=== PATIENT | male | born 1960 | race Caucasian/White ===

== ENCOUNTER 2017-10-30 13:57 | Inpatient (IN) | payer OTHER ==
[~2017-10-30] VITALS: Ht 170.2 cm; Wt 109.0 kg
[2017-10-30] MEDS ORDERED: diphenhydrAMINE 50 mg/ml inj IV ONE (14:55)
[2017-10-30] MEDS ORDERED: normal saline 1000ML IV soln IVB ONE (14:55)
[2017-10-30] MEDS ORDERED: proCHLORperazine 10 MG/2 ml inj IV ONE (14:55)
[2017-10-30] MEDS ORDERED: iohexol 350MG/ML 100ml bottle IV ONE (15:00)
[2017-10-30 15:08] LABS: BASOPHILS % (AUTO) 0.5 % (0-1); EOSINOPHILS # (AUTO) 0.1 X10'3 (0-0.9); EOSINOPHILS % (AUTO) 0.8 % (0-6); HEMATOCRIT 41.3 % (42.0-52.0); HEMOGLOBIN 14.2 g/dl (14.0-17.9); LYMPHOCYTES # (AUTO) 1.9 X10'3 (1.1-4.8); LYMPHOCYTES % (AUTO) 27.8 % (21-51); MEAN CORPUSCULAR HEMOGLOBIN 30.5 PG (27.0-31.0); MEAN CORPUSCULAR HGB CONC 34.3 % (33.0-36.5); MEAN CORPUSCULAR VOLUME 88.7 FL (78-98); MONOCYTES # (AUTO) 0.7 X10'3 (0-0.9); MONOCYTES % (AUTO) 9.7 % (2-12); NEUTROPHILS # (AUTO) 4.1 X10'3 (1.8-7.7); NEUTROPHILS % (AUTO) 61.2 % (42-75); PLATELET COUNT 189 X10'3 (140-440); RED BLOOD COUNT 4.65 X10'6 (4.70-6.10); RED CELL DISTRIBUTION WIDTH 13.4 % (11.5-14.5); WHITE BLOOD COUNT 6.7 X10'3 (4.5-11.0)
[2017-10-30 15:18] LABS: INR 0.9 INR; PARTIAL THROMBOPLASTIN TIME 25 SECONDS (22-32); PROTHROMBIN TIME 9.7 SECONDS (9.0-12.0)
[2017-10-30 15:23] LABS: ALANINE AMINOTRANSFERASE 60 U/L (12-78); ALBUMIN 3.8 G/DL (3.4-5.0); ALBUMIN/GLOBULIN RATIO 1.3 (1.1-1.5); ALKALINE PHOSPHATASE 61 IU/L (46-116); ANION GAP 9 (8-16); ASPARTATE AMINO TRANSFERASE 25 U/L (10-37); BILIRUBIN,TOTAL 0.4 MG/DL (0.1-1.0); BLOOD UREA NITROGEN 17 MG/DL (7-18); BUN/CREATININE RATIO 14.5 (5.4-32.0); CALCIUM 9.1 MG/DL (8.5-10.1); CHLORIDE 104 MMOL/L (99-107); CREATININE 1.17 MG/DL (0.60-1.10); GLUCOSE 98 MG/DL (70-104); POTASSIUM 4.3 MMOL/L (3.5-5.1); SODIUM 141 MMOL/L (135-145); TOTAL CARBON DIOXIDE 28.1 MMOL/L (24-32); TOTAL PROTEIN 6.8 G/DL (6.4-8.2); eGFR 64 ML/MIN
[2017-10-30 15:26] LABS: TROPONIN I < 0.04 NG/ML (0.0-0.05)
[2017-10-30] MEDS ORDERED: ondansetron/PF 4mg/2ml inj IV PRN (17:35)
[2017-10-30] MEDS ORDERED: mag hydrox/Alum hydrox/simeth 30ml oral suspension PO PRN (17:35)
[2017-10-30] MEDS ORDERED: potassium Cl 20 mEq SR tablet PO PRN ×2 (17:35)
[2017-10-30] MEDS ORDERED: bisacodyl 10mg suppository rectal RC PRN (17:35)
[2017-10-30] MEDS ORDERED: magnesium 4gm in 100ml NS 100 ML IV PRN (17:35)
[2017-10-30] MEDS ORDERED: magnesium Cl slow-release 64mg tablet PO PRN (17:35)
[2017-10-30] MEDS ORDERED: potassium Cl 40MEQ/NS 500ml 500 ML IV PRN ×2 (17:35)
[2017-10-30] MEDS ORDERED: magnesium hydroxide 30ml (MOM) UD suspension PO PRN (17:35)
[2017-10-30] MEDS ORDERED: magnesium/D5W IVPB 50 ML IV PRN (17:35)
[2017-10-30] MEDS ORDERED: LEVO50TA PO (18:24)
[2017-10-30] MEDS ORDERED: ATOR80TA PO (18:24)
[2017-10-30] MEDS ORDERED: ATEN-169 PO (18:24)
[2017-10-30] MEDS ORDERED: CLOP75TA15 PO (18:24)
[2017-10-30] MEDS ORDERED: AMLO10TA4 PO (18:24)
[2017-10-30] MEDS ORDERED: ENAL20TA75 PO (18:24)
[2017-10-30] MEDS: acetaminophen 325mg tablet PO PRN (19:07)
[2017-10-30] MEDS: FLUoxetine 20mg capsule PO SCH (19:07)
[2017-10-30] MEDS: docusate sod 100mg capsule PO SCH (19:07)
[2017-10-30] MEDS: normal saline 1000ml 1,000 ML IV SCH (19:14)
[2017-10-30 22:00] VITALS: BP 131/79
[2017-10-31 00:40] VITALS: BP 153/97
[2017-10-31 02:10] VITALS: BP 146/86
[2017-10-31] MEDS: normal saline 1000ml 1,000 ML IV SCH (05:18)
[2017-10-31 06:00] VITALS: BP 141/87
[2017-10-31 06:42] LABS: ALBUMIN 4.4 G/DL (3.4-5.0); ANION GAP 11 (8-16); BLOOD UREA NITROGEN 13 MG/DL (7-18); CALCIUM 9.4 MG/DL (8.5-10.1); CHLORIDE 102 MMOL/L (99-107); CHOL/HDL RATIO 3.8 (0.00-4.99); CHOLESTEROL 185 MG/DL (0-200); CREATININE 1.18 MG/DL (0.60-1.10); GLUCOSE 129 MG/DL (70-104); HDL CHOLESTEROL 49 MG/DL (35-60); LDL CHOLESTEROL 106 MG/DL (50-100); MAGNESIUM 1.8 MG/DL (1.5-2.4); POTASSIUM 4.4 MMOL/L (3.5-5.1); SODIUM 140 MMOL/L (135-145); TOTAL CARBON DIOXIDE 27.4 MMOL/L (24-32); TRIGLYCERIDES 226 MG/DL (20-135); eGFR 64 ML/MIN
[2017-10-31] MEDS ORDERED: levoTHYROXINE 25mcg tablet PO SCH (07:00)
[2017-10-31] MEDS ORDERED: atenolol 50mg tablet PO SCH (08:00)
[2017-10-31] MEDS ORDERED: clopidogrel 75mg tablet PO SCH (08:00)
[2017-10-31] MEDS ORDERED: non-formulary drug (Levothyroxine Sodium (Synthroid) 1 TAB) PO SCH (08:00)
[2017-10-31] MEDS ORDERED: non-formulary drug (Atorvastatin Calcium (Lipitor) 1 TAB) PO SCH (08:00)
[2017-10-31] MEDS ORDERED: amLODIPine 5mg tablet PO SCH (08:00)
[2017-10-31] MEDS ORDERED: enoxaparin 40mg/0.4ml syringe SUBCUT SCH (08:00)
[2017-10-31] MEDS ORDERED: atorvastatin 20mg tablet PO SCH (08:00)
[2017-10-31] MEDS ORDERED: non-formulary drug (Amlodipine Besylate (Norvasc) 1 TAB) PO SCH (08:00)
[2017-10-31] MEDS: FLUoxetine 20mg capsule PO SCH (08:00)
[2017-10-31] MEDS ORDERED: K and/or MAG REPLACEMENT MC SCH (08:00)
[2017-10-31] MEDS ORDERED: aspirin 325mg tablet, delayed-release (Ecotrin) PO SCH (08:00)
[2017-10-31] MEDS: docusate sod 100mg capsule PO SCH (08:19)
[2017-10-31] MEDS ORDERED: ASPI81TA52 PO (09:47)
[2017-10-31 10:00] VITALS: BP 141/81
[2017-10-31] MEDS: acetaminophen 325mg tablet PO PRN (11:49)
[2017-10-31] MEDS ORDERED: FLUO20CA22 PO (13:27)
[2017-10-31] MEDS ORDERED: ASPI-1264 PO (13:27)
[2017-10-31] MEDS ORDERED: EZET10TA14 PO (13:37)
[2017-10-31 14:00] VITALS: BP 133/82
== END 2017-10-31 14:15 | disposition home or self-care (01) | DRG 66 ==
LOC: ER 13:58 → ED HOLD 17:11 → ORTHO 4S 17:42
PROVIDERS: ADMIT Internal Medicine; ATTEND Internal Medicine
PROC: B3251ZZ Computerized Tomography (CT Scan) of Bilateral Common Carotid Arteries using Low Osmolar Contrast (ICD-10-PCS; principal; 2017-10-30)
PROC: B32G1ZZ Computerized Tomography (CT Scan) of Bilateral Vertebral Arteries using Low Osmolar Contrast (ICD-10-PCS; 2017-10-30)
DX: I63.9 Cerebral infarction, unspecified (principal); E03.9 Hypothyroidism, unspecified; E78.00 Pure hypercholesterolemia, unspecified; E78.5 Hyperlipidemia, unspecified; F32.9 Major depressive disorder, single episode, unspecified; H53.47 Heteronymous bilateral field defects; F41.9 Anxiety disorder, unspecified; E66.9 Obesity, unspecified; G47.33 Obstructive sleep apnea (adult) (pediatric); H53.40 Unspecified visual field defects; I10 Essential (primary) hypertension; I65.22 Occlusion and stenosis of left carotid artery; I69.398 Other sequelae of cerebral infarction; Z79.82 Long term (current) use of aspirin; Z79.899 Other long term (current) drug therapy; Z79.02 Long term (current) use of antithrombotics/antiplatelets; Z88.5 Allergy status to narcotic agent; Z88.7 Allergy status to serum and vaccine; Z68.37 Body mass index [BMI] 37.0-37.9, adult
CPT/HCPCS: 36415; 70450; 70496; 70498; 70544; 70551; 71045; 80048; 80053; 80061; 82948; 83735; 84443; 84484; 85025; 85610; 85651; 85730; 87070; 93005; 93306; 96361; 96374; 96375; 97116; 97161; 99285; J0780; J1200; J1650; J2405; J7030; Q9967